=== PATIENT | female | born 1990 | race Caucasian/White ===

== ENCOUNTER 2023-11-25 09:15 | Day surgery (SDC) | payer MEDICAID ==
[~2023-11-25 09:15] MED LIST: Dexamethasone 4 MG/ML 5 ML MDV ONE; Ketorolac 30 MG/ML SDV ONE; Ondansetron 4 MG/2 ML SDV ONE; Sodium Chloride 0.9% 10 ML Syringe FLUSH PRN; Sodium Chloride 0.9% 10 ML Syringe FLUSH SCH
[2023-11-25] MEDS: Lactated Ringers 1,000 ML IV SCH (09:40)
[2023-11-25] MEDS ORDERED: Midazolam 1 MG/ML 2 ML SDV ONE (10:03)
[2023-11-25] MEDS ORDERED: Propofol 200 MG/20 ML SDV ONE ×2 (10:03→10:16)
[2023-11-25] MEDS ORDERED: HYDROmorphone 0.5 MG/0.5 ML Syringe ONE (10:03)
[2023-11-25] MEDS: Famotidine 20 MG/2 ML SDV IVPUSH ONE (10:06)
[2023-11-25] MEDS: Acetaminophen 325 MG Tab PO ONE (10:06)
[2023-11-25] MEDS ORDERED: Metoclopramide 10 MG/2 ML SDV ONE (10:52)
[2023-11-25] MEDS ORDERED: Ondansetron 4 MG/2 ML SDV ONE (11:01)
[2023-11-25] MEDS ORDERED: ceFAZolin 2 GM Vial ONE (11:28)
[2023-11-25] MEDS: EPINEPHrine 1 MG/ML SDV ONE (11:40)
[2023-11-25] MEDS: Bupivacaine 0.25% 10 ML SDV ONE (11:43)
[2023-11-25] MEDS ORDERED: Ondansetron 4 MG/2 ML SDV IVPUSH PRN (11:44)
[2023-11-25] MEDS ORDERED: HYDROmorphone 0.5 MG/0.5 ML Syringe IVPUSH PRN (11:44)
[2023-11-25] MEDS: fentaNYL 100 MCG/2 ML SDV IVPUSH PRN (12:17)
[2023-11-25] MEDS: Acetaminophen/HYDROcodone 325-5 MG Tab PO PRN (14:30)
== END 2023-11-25 15:25 | disposition home or self-care (01) ==
LOC: JD.SDS 09:15
PROVIDERS: ATTEND Orthopaedic Surgery
DX: M67.52 Plica syndrome, left knee (principal); M89.9 Disorder of bone, unspecified
CPT/HCPCS: 01400; A9270-GY; J0171; J0665; J0690; J1100; J1170; J1885; J2250; J2405; J2704; J2765; J3010; J3490; J7120